=== PATIENT | male | born 1995 | race Caucasian/White ===

== ENCOUNTER 2017-01-06 23:48 | Emergency (ER) | payer OTHER ==
[~2017-01-06] VITALS: Ht 170.2 cm; Wt 119.8 kg
[~2017-01-06 23:48] MED LIST: AUGMENTIN875 MG PO; NAPROSYN500 MG PO; PERCOCET 5/31 TABLET PO; VALIUM5 MG PO
[2017-01-07 01:58] VITALS: BP 146/98
== END 2017-01-07 01:59 | disposition home or self-care (01) ==
LOC: EXP 23:48 → EME 23:48 → EXP 01-07 01:59
DX: H60.92 Unspecified otitis externa, left ear (principal)
CPT/HCPCS: 99281; 99284; J2270